=== PATIENT | female | born 1955 | race Two or more races ===

== ENCOUNTER 2018-07-05 23:46 | Emergency (ER) | payer SELFPAY ==
[~2018-07-05] VITALS: Ht 157.5 cm; Wt 83.9 kg
[2018-07-06 00:30] VITALS: BP 194/86
[2018-07-06] MEDS ORDERED: BENZ100C PO (00:59)
[2018-07-06] MEDS ORDERED: METH4TAB2 PO (00:59)
[2018-07-06] MEDS ORDERED: AZIT250T6 PO (00:59)
--- NOTE | 2018-07-06 00:59 | PHYS DOC ---
Past Medical History Past Medical History: Other Additional Past Medical Histor: PRE DM Past Surgical History: Additional Past Surgical Histo: BACK SX Alcohol Use: None Drug Use: None Adult General Chief Complaint Chief Complaint: COUGH HPI HPI Patient is a 63 year old female who presents with cough, congestion, runny nose , and chills x 2 weeks. Patient states that she has ear pain and head congestion also. Patient states she has been taking Ibuprofen. She has no medications daily and is allergic to penicillin. Review of Systems Review of Systems Constitutional: Denies fever or chills [] Eyes: Denies change in visual acuity, redness, or eye pain [] HENT: nasal congestion and sore throat, bilateral ear pain[] Respiratory: cough. Denies shortness of breath [] Cardiovascular: No additional information not addressed in HPI [] GI: Denies abdominal pain, nausea, vomiting, bloody stools or diarrhea [] : Denies dysuria or hematuria [] Musculoskeletal: Denies back pain or joint pain [] Integument: Denies rash or skin lesions [] Neurologic: Denies headache, focal weakness or sensory changes [] All other systems were reviewed and found to be within normal limits, except as documented in this note. Allergies Allergies Allergies Coded Allergies Type Severity Reaction Last Updated Verified Penicillins Allergy Intermediate 07/06/18 Yes Physical Exam Physical Exam Constitutional: Well developed, well nourished, no acute distress, non-toxic appearance. [] HENT: Normocephalic, atraumatic, bilateral external ears normal, oropharynx moist, no oral exudates, nose normal. Throat reddened but no exudate or swelling. Bilateral tympanic membranes fluid behind ear drums.[] Eyes: PERRLA, EOMI, conjunctiva normal, no discharge. [] Neck: Normal range of motion, no tenderness, supple, no stridor. [] Cardiovascular:Heart rate regular rhythm, no murmur [] Lungs & Thorax: Bilateral breath sounds clear to auscultation [] Abdomen: Bowel sounds normal, soft, no tenderness, no masses, no pulsatile masses. [] Skin: Warm, dry, no erythema, no rash. [] Back: No tenderness, no CVA tenderness. [] Extremities: No tenderness, no cyanosis, no clubbing, ROM intact, no edema. [] Neurologic: Alert and oriented X 3, normal motor function, normal sensory function, no focal deficits noted. [] Psychologic: Affect normal, judgement normal, mood normal. [] Current Patient Data Vital Signs Vital Signs Date Time Temp Pulse Resp B/P (MAP) Pulse Ox O2 Delivery O2 Flow Rate FiO2 07/06/18 00:30 98.6 96 18 194/86 (122) 100 Room Air 98.6 EKG EKG [] Radiology/Procedures Radiology/Procedures [] Course & Med Decision Making Course & Med Decision Making Patient is a 63 year old female who presents with cough, congestion, runny nose , and chills x 2 weeks. Patient states that she has ear pain and head congestion also. Patient states she has been taking Ibuprofen. She has no medications daily and is allergic to penicillin. Alert and oriented. Skin is pink warm and dry. Mucous membranes are moist. She is eating and drinking fine Bilateral lung sounds are within clear to auscultation. She has fluid in bilateral tympanic membranes. The throat is reddened but there are no exudates or swelling. Abdomen is soft and nontender. Vital signs within normal limits. sent home with a prescription of antibiotic, Tessalon Perles, Medrol Dosepak. Patient likely has a upper respiratory infection. Dragon Disclaimer Dragon Disclaimer This electronic medical record was generated, in whole or in part, using a voice recognition dictation system. Departure Departure Impression: Primary Impression: URI (upper respiratory infection) Disposition: 01 HOME, SELF-CARE Condition: STABLE Referrals: UNKNOWN PCP NAME (PCP) Patient Instructions: Upper Respiratory Infection, Adult Additional Instructions: TAKE TYLENOL OR IBUPROFEN FOR PAIN. TAKE MEDICATIONS PRESCRIBED. DRINK PLENTY OF FLUIDS. TRY USING OVER THE COUNTER COLD MEDICATIONS. Scripts Methylprednisolone (MEDROL) 4 Mg Tab.ds.pk 1 PKG PO UD, #1 PKG Prov: GALILEO PACHECOELO [employer]var[employer] 07/06/18 Azithromycin (AZITHROMYCIN TABLET) 250 Mg Tablet 1 PKG PO UD, #6 TAB Prov: LIAM PACHECO 07/06/18 Benzonatate (TESSALON PERLE) 100 Mg Capsule 1 CAP PO TID, #30 CAP Prov: LIAM PACHECO [employer] 07/06/18 Problem Qualifiers Primary Impression: URI (upper respiratory infection) URI type: unspecified URI Qualified Codes: J06.9 - Acute upper respiratory infection, unspecified LIAM PACHECO APRN Jul 06, 2018 00:59
== END 2018-07-06 01:29 | disposition home or self-care (01) ==
LOC: ER 07-06 00:53
DX: J06.9 Acute upper respiratory infection, unspecified (principal); Z88.0 Allergy status to penicillin
CPT/HCPCS: 99283